=== PATIENT | male | born 1995 | race Caucasian/White ===

== ENCOUNTER 2021-09-26 19:35 | Emergency (ER) | payer SELFPAY ==
--- NOTE | 2021-09-26 20:04 | NUR ---
CALLED TO TRIAGE, PATIENT HAS LWBS
== END 2021-09-26 20:04 | disposition left against medical advice (07) ==
LOC: MED 19:35
DX: Z53.21 Procedure and treatment not carried out due to patient leaving prior to being seen by health care provider (principal)